=== PATIENT | male | born 1985 | race Caucasian/White ===

== ENCOUNTER 2024-11-15 23:14 | Emergency (ER) | payer BC ==
[~2024-11-15] VITALS: Ht 172.7 cm; Wt 54.8 kg
[2024-11-15 23:19] VITALS: BP 157/99; PULSE 77; RESP 18; O2SAT 100
[2024-11-16] MEDS ORDERED: ondansetron/PF 4mg/2ml inj IV ONE (00:20)
[2024-11-16 00:42] LABS: BILIRUBIN,URINE SMALL (Neg); CLARITY,URINE CLEAR (Clear); COLOR,URINE YELLOW (Yellow); GLUCOSE, URINE NEGATIVE (Neg); KETONES,URINE TRACE mg/dl (Neg); LEUKOCYTE ESTERASE ,URINE TRACE (Neg); NITRITES, URINE NEGATIVE (Neg); OCCULT BLOOD,URINE NEGATIVE (Neg); PROTEIN,URINE NEGATIVE (Neg)
[2024-11-16 00:48] LABS: UA COLLECTION TYPE CLN CATCH MIDSTREAM
[2024-11-16 00:51] LABS: BACTERIA,URINE FEW /HPF (Neg); RBC,URINE 0-2 /HPF (0-2); SQUAMOUS EPITHELIAL CELL,UR FEW /LPF (FEW)
--- NOTE | 2024-11-16 02:02 | Physician Documentation ---
History of Present Illness ~ Chief Complaint: Urinary Symptoms Stated Complaint: CONSTIPATION Time Seen by MD: 02:01 HPI Patient presents today for dysuria and testicular pain. Ongoing over the last few days. He was given 2 doses of 3rd generation cephalosporin Flagyl and 7 day course of doxycycline. Today while urinating he noticed difficulty with urination. He is no new partners denies any fevers. He reports straining with urination onto attempts Medication Reconciliation Allergies: Coded Allergies: No Known Allergies (Unverified , 11/15/24) Review of Systems All Other Systems at this time: Reviewed and Negative Constitutional: Denies: fever Physical Exam Vital Signs: Temperature: 98.3, Source: Temporal, Heart Rate: 77, Respiratory Rate: 18, BP: 157/99, Pulse Oximetry: 100, Weight: 54.800 Oxygen Flow Rate: 0 Physical Exam Well-appearing no distress Abdomen soft nontender Awake alert oriented Progress Results/Orders Results/Orders Orders - HILARY NÚÑEZ MD Cult Urine + [address] (11/16/24 00:50) Completed Orders - HILARY NÚÑEZ MD Ondansetron Inj. (Zofran 4mg/2ml Vial) (11/16/24 00:20) Ua W/Microscopic, Cult If Ind (11/15/24 23:25) Vital Signs 11/15/24 23:19 Temp 98.3 Pulse 77 Resp 18 B/P (MAP) 157/99 Pulse Ox 100 O2 Flow Rate 0 Laboratory Tests Test 11/15/24 23:25 Urine Specimen Description Cln catch midstream Urine Color Yellow Urine Clarity Clear Urine pH 6.0 Urine Specific [place] >=1.030 Urine Protein Negative Urine Glucose (UA) Negative Urine Ketones Trace H Urine Occult Blood Negative Urine Nitrite Negative Urine Bilirubin Small Urine Urobilinogen 1.0 Urine Leukocyte Esterase Trace H Urine RBC 0-2 Urine WBC 5-10 H Urine Squamous Epithelial Cells Few Urine Bacteria Few Urine Culture Indicated Indicated Volume Urine Centrifuged 10 ml Urine Comment Microbiology Date/Time Source Procedure Growth Status 11/16/24 00:50 Urine Clean Catch Midstream Urine Culture - Preliminary Culture received. Resulted Departure Disposition: 01 HOME / SELF CARE / HOMELESS Impression: Primary Impression: Acute urinary tract infection Additional Instructions: Please return to the emergency department for fever . Continue taking the doxycycline that was already prescribed to and start taking cephalexin and Flomax which I have sent to your pharmacy. You may start taking both of these tomorrow morning Referrals: NO PRIMARY CARE PROVIDER (PCP) Prescriptions Cephalexin (Cephalexin) 500 Mg Capsule 1 CAP PO Q6H for 5 Days, #20 CAP Prov: HILARY NÚÑEZ MD 11/16/24 Tamsulosin Hcl* (Flomax*) 0.4 Mg Cap.sr.24h 1 CAP PO DAILY for 10 Days, #10 CAP Prov: HILARY NÚÑEZ MD 11/16/24 Signature Scribe Signature: na Attestation: HILARY Friedman MD November 16, 2024 02:02
[2024-11-16] MEDS ORDERED: CEPH500C81 PO (02:34)
[2024-11-16] MEDS ORDERED: TAMS-55 PO (02:34)
[2024-11-16] MEDS: tamsulosin 0.4mg capsule PO ONE (03:06)
[2024-11-16] MEDS: CefTRIAXone 500MG IM Kit w/LIDOcaine IM ONE (03:08)
[2024-11-16 03:10] VITALS: TEMP 98.3
== END 2024-11-16 03:11 | disposition home or self-care (01) ==
LOC: ER 23:15
DX: N39.0 Urinary tract infection, site not specified (principal)
CPT/HCPCS: 81001; 87081; 87088; 96372; 99283; J0696

== ENCOUNTER 2024-11-16 09:42 | Emergency (ER) | payer BC ==
[~2024-11-16] VITALS: Ht 172.7 cm; Wt 87.2 kg
[~2024-11-16 09:42] MED LIST: CEPH500C81 PO; TAMS-55 PO
--- NOTE | 2024-11-16 10:03 | Physician Documentation ---
History of Present Illness ~ Chief Complaint: Urinary Retention Stated Complaint: UTI/UNABLE TO URINATE Time Seen by MD: 10:16 Primary Medical Doctor: NONE RENETTA [age] year old male returns to the ED with ongoing complaint of urinary retention and painful urination. He was previously placed on Flagyl and doxycycline. He was seen here yesterday given Flomax. No evidence of RBCs in his urine yesterday however he left the ED early this morning and returns after sleeping with increased urinary retention and difficulty urinating states he does not have any penile discharge but and reports only mild dribbling when at tempting to urinate. Day of Onset: November 16, 2024 Medication Reconciliation Allergies: Coded Allergies: No Known Allergies (Unverified , 11/16/24) Scheduled Cephalexin (Cephalexin), 1 CAP PO Q6H Tamsulosin Hcl* (Flomax*), 1 CAP PO DAILY Physical Exam Vital Signs: Temperature: 97.1, Source: Temporal, Heart Rate: 70, Respiratory Rate: 18, BP: 124/85, Pulse Oximetry: 96, Weight: 87.200 Physical Exam General: Alert, no apparent distress. Respiratory: Lungs clear, no respiratory distress. Chest: No accessory muscle use. Cardiovascular: Regular rate and rhythm, no murmurs. Gastrointestinal: Soft, nontender, nondistended. Bowels sounds present. Extremities: Normal range of motion, no deformity. Neurologic: Oriented x4. Psychiatric: Normal mood and affect. Skin: Normal color, warm and dry. No edema, no ecchymosis. Progress Results/Orders Results/Orders Orders - ASHA THOMAS FIRE BEHAVIOR ANALYST Bladder Scan (11/16/24 ) Urinalysis, Cult If Indicated (11/16/24 10:03) * Straight Cath* (11/16/24 10:38) Ct Abdomen Pelvis (11/16/24 10:59) Completed Orders - ASHA THOMAS FIRE BEHAVIOR ANALYST Cbc/Diff (11/16/24 10:03) BMP (11/16/24 10:03) Lipase (11/16/24 10:03) CMP (11/16/24 10:03) Ct Abdomen Pelvis (11/16/24 10:59) Morphine 4mg/Ml Inj. (Morphine Inj.) (11/16/24 12:45) Ondansetron Inj. (Zofran 4mg/2ml Vial) (11/16/24 12:45) Medications Received in ER Medications (Trade) Dose Ordered Sig/Nancy Route PRN Reason Start Time Stop Time Status Last Admin Dose Admin (morphine inj.) 4 mg ONCE ONCE IV 11/16/24 12:45 11/16/24 12:46 DC 11/16/24 12:48 4 MG (Zofran 4mg/2ml vial) 4 mg ONCE ONCE IV 11/16/24 12:45 11/16/24 12:46 DC 11/16/24 12:47 4 MG Vital Signs 11/16/24 11/16/24 11/16/24 11/16/24 09:58 11:23 11:28 12:48 Temp 97.1 98.3 98.3 Pulse 70 59 67 Resp 18 18 18 12 B/P (MAP) 124/85 119/82 (94) 111/72 (85) Pulse Ox 96 99 100 O2 Flow Rate 0 11/16/24 12:48 Resp 12 Laboratory Tests Test 11/16/24 10:16 White Blood Count 6.2 Red Blood Count 5.19 Hemoglobin 15.3 Hematocrit 45.6 Mean Corpuscular Volume 87.9 Mean Corpuscular Hemoglobin 29.5 Mean Corpuscular Hemoglobin Concent 33.6 Red Cell Distribution Width 13.3 Platelet Count 241 Mean Platelet Volume 8.6 Neutrophils (%) (Auto) 65.6 Lymphocytes (%) (Auto) 21.9 Monocytes (%) (Auto) 6.7 Eosinophils (%) (Auto) 5.4 Basophils (%) (Auto) 0.4 Neutrophils # (Auto) 4.1 Lymphocytes # (Auto) 1.4 Monocytes # (Auto) 0.4 Eosinophils # (Auto) 0.3 Basophils # (Auto) 0.0 CBC Comment Sodium Level 146 H Potassium Level 4.0 Chloride Level 110 H Carbon Dioxide Level 27.6 Anion Gap 8 Blood Urea Nitrogen 16 Creatinine 0.95 Estimated GFR/1.73 m2 88 BUN/Creatinine Ratio 16.8 Glucose Level 93 Calcium Level 8.4 L Total Bilirubin 0.4 Aspartate Amino Transf (AST/SGOT) 20 Alanine Aminotransferase (ALT/SGPT) 30 Alkaline Phosphatase 84 Total Protein 7.1 Albumin 3.8 Globulin 3.3 Albumin/Globulin Ratio 1.2 Lipase 39 Chemistry Comments Medical Decision Making Findings Patient does not present acutely ill however he does present with concerns over ongoing penile pain when attempting urinate under scan indicated patient was not retaining urine as nursing staff in the found that he had a proximally 250 mL. Patient presents somewhat early to be concerned about enlarged prostate. I am currently suspecting urethral stricture.. He has already been treated for STI. However he told me that he was unable to bead picker the previously prescribed c ephalexin and Flomax for unknown reasons. Urologist: indicates meatal stenosis Patient had a suspected syncopal event while the urologist was placing the guidewire and dilators. Patient did acknowledge he has a history of vasovagal syncope secondary to blood draws EKG unremarkable Patient recovered quickly and showed no signs of postictal symptoms Patient recovered from event at bedside patient showed no signs of symptoms being postictal. pain medications to assist with the procedure completion Was able to completely empty his bladder at bedside with the dilators in place. Dr. Luna will follow up with the patient next week. Urinary Diff Dx:Considerations: Include: AAA, Aortic dissection, Appendicitis, Appendicitis train, Bowel obstruction, Bladder outlet obstruc., Cholelithiasis, Choleangitis, Cholecystitis, DJD, Epididymitis, Hepatitis, HNP, Impaction, Musculoskeletal pain, Pancreatitis, Postoperative Comp., Prostatitis, Pyelonephritis, Renal failure, Renal infarction, Strain, Urolithiasis, Urinary Obstruction, Urethritis, Urinary retention, UTI, Other Departure Disposition: 01 HOME / SELF CARE / HOMELESS Impression: Primary Impression: Meatal stenosis Discharge Instructions: Acute Urinary Retention, Male, [id number] Referrals: NO PRIMARY CARE PROVIDER (PCP) ADITI LUNA MD Education Educated: Patient Educated regarding: diagnosis Signature Scribe Signature: cd Attestation: The note accurately reflects work and decisions made by me.Asha Thomas - KO 11/16/24 11:36 ASHA THOMAS NP November 16, 2024 10:03
[2024-11-16 10:49] LABS: BASOPHILS % (AUTO) 0.4 % (0-1); EOSINOPHILS # (AUTO) 0.3 X10'3 (0-0.9); EOSINOPHILS % (AUTO) 5.4 % (0-6); HEMATOCRIT 45.6 % (42.0-52.0); HEMOGLOBIN 15.3 g/dl (14.0-17.9); LYMPHOCYTES # (AUTO) 1.4 X10'3 (1.1-4.8); LYMPHOCYTES % (AUTO) 21.9 % (21-51); MEAN CORPUSCULAR HEMOGLOBIN 29.5 PG (27.0-31.0); MEAN CORPUSCULAR HGB CONC 33.6 g/dL (33.0-36.5); MEAN CORPUSCULAR VOLUME 87.9 FL (78-98); MEAN PLATELET VOLUME 8.6 FL (7.4-10.4); MONOCYTES # (AUTO) 0.4 X10'3 (0-0.9); MONOCYTES % (AUTO) 6.7 % (2-12); NEUTROPHILS # (AUTO) 4.1 X10'3 (1.8-7.7); NEUTROPHILS % (AUTO) 65.6 % (42-75); PLATELET COUNT 241 X10'3 (140-440); RED BLOOD COUNT 5.19 X10'6 (4.70-6.10); RED CELL DISTRIBUTION WIDTH 13.3 % (11.5-14.5); WHITE BLOOD COUNT 6.2 X10'3 (4.5-11.0)
[2024-11-16 11:03] LABS: ALANINE AMINOTRANSFERASE 30 U/L (12-78); ALBUMIN 3.8 G/DL (3.4-5.0); ALBUMIN/GLOBULIN RATIO 1.2 (1.1-1.5); ALKALINE PHOSPHATASE 84 IU/L (46-116); ANION GAP 8 (8-16); ASPARTATE AMINO TRANSFERASE 20 U/L (10-37); BILIRUBIN,TOTAL 0.4 MG/DL (0.1-1.0); BLOOD UREA NITROGEN 16 MG/DL (7-18); BUN/CREATININE RATIO 16.8 (10.0-20.0); CALCIUM 8.4 MG/DL (8.5-10.1); CHLORIDE 110 MMOL/L (99-107); CREATININE 0.95 MG/DL (0.60-1.10); GLUCOSE 93 MG/DL (70-104); LIPASE 39 U/L (16-77); SODIUM 146 MMOL/L (135-145); TOTAL CARBON DIOXIDE 27.6 MMOL/L (24-32); TOTAL PROTEIN 7.1 G/DL (6.4-8.2); eCRCL 101 ML/MIN; eGFR 88 ML/MIN
--- NOTE | 2024-11-16 11:18 | RADIOLOGY REPORT ---
CT ABDOMEN AND PELVIS WITHOUT CONTRAST CLINICAL HISTORY: urinary retention and penile pain TECHNIQUE: Multiple contiguous axial images of the abdomen and pelvis without intravenous contrast. T he images were reformatted degenerate coronal and sagittal reconstructions. All CT scans at this medical facility are performed using dose modulation techniques as appropriate t o a performed exam including the following:Automated exposure control was utilized; adjustment of the MA and/or KV according to patient size; and use of iterative reconstruction technique. Radiation Dose Information: CT Dose: CTDI volume is 20 mGy. Dose-length product is 1143 mGy*cm Comparison: None FINDINGS: Evaluation of the abdomen and pelvis is limited without intravenous contrast. The liver, gallbladder, pancreas, kidneys, adrenal glands, and spleen appear within normal limits. There is no gross evidence of abdominal lymphadenopathy. There is no free fluid or free air. The stomach grossly appears unremarkable. The small and large bowel loops demonstrate normal caliber and distribution. A normal appearing appendix is seen in the right lower quadrant abdomen. The abdominal aorta and IVC appear within normal limits. The bladder appears unremarkable for the degree of distention. Pelvic organ appears within normal [place] its. There is no gross evidence of a pelvic mass. There is no free fluid collection. Lung bases are clear. There is no acute osseous abnormality. IMPRESSION: 1. There is no acute process in the abdomen and pelvis. HS:Y
[2024-11-16] MEDS: ondansetron/PF 4mg/2ml inj IV ONE (12:47)
[2024-11-16 12:48] VITALS: TEMP 98.3
[2024-11-16] MEDS: morphine 4 MG/ML inj SYRINge IV ONE (12:48)
[2024-11-16] MEDS: LORazepam 2 mg/ml vial IV ONE (13:14)
[2024-11-16 13:40] VITALS: BP 100/69; PULSE 68; RESP 18; O2SAT 100
--- NOTE | 2024-11-16 15:33 | ELECTROCARDIOGRAPH REPORT ---
[facility] Test Date: 2024-11-16 Test Time: 12:37:16 Pat Name: SHABANA MOTT Department: EMERGENCY ROOM Room: Gender: M Telemarketing Fundraiser: FITZ : 1985 Requested By: ASHA THOMAS Order Number: [id number] Reading MD: Measurements Intervals [place] Rate: 64 P: 15 NV: 119 QRS: 72 QRSD: 108 T: 37 QT: 446 QTc: 461 Interpretive Statements Sinus rhythm Borderline short NV interval Baseline wander in lead(s) V1,V3,V5,V6 Please click the below link to view image of tracing.
--- NOTE | 2024-11-16 19:11 | CONSULTATION ---
DATE OF CONSULTATION: 11/16/2024 DICTATING PHYSICIAN: Eric Moreno MD HISTORY OF PRESENT ILLNESS: The patient presents with a 2-3 week history of increasing difficulty with urination. He was seen in the emergency room yesterday and returned with a feeling of urinary retention and painful urination. He has been given antibiotics in the recent past, which he thought improved things, but it is only worsening again and reports only mild dribbling with attempting to urinate. PAST SURGICAL HISTORY: None. PAST MEDICAL HISTORY: None. ALLERGIES: None. MEDICATIONS: Cephalexin and Flomax. SOCIAL HISTORY: Noncontributory. REVIEW OF SYSTEMS: Ten-point review of systems is negative except for HPI. PHYSICAL EXAMINATION: VITAL SIGNS: Blood pressure 124/85, respirations 18, heart rate 70, temperature 97.1. GENITOURINARY: The patient is noted to have an obvious meatal stenosis, which is presumed inflammatory in this case with a circumcised penis. LABORATORY DATA: White count is 6,000, hematocrit is 45%. BUN and creatinine are 16 and 0.9. Urinalysis is not performed. IMAGING: Shows a normal lower urinary tract with a postvoid residual of about 300 mL. PROCEDURE NOTE: Standard prep and drape of the genitals was performed. A smooth Glidewire was advanced through the meatus and coiled into the bladder. Urethral dilation of meatal stenosis was initiated. I performed dilation with 8-[place] and 10-[place]. At this point, the patient had a reaction, which is characterized somewhere between a seizure and a vagal event. It was witnessed by multiple bystanders. It would seem that pain brought this on. After an appropriate period of observation, the dilation was continued up to 16-[place]. The patient was able to void thereafter with an improved force of stream. He is at risk for recurrent meatal stenosis and will follow up in the office in 1-2 weeks. ASSESSMENT: * Urinary retention secondary to meatal stenosis, status post dilation today. * Witnessed event, which appeared possible seizure versus vagal event from pain. This will be worked up if appropriate by emergency room staff. PLAN: Follow up with me in 1-2 weeks for instructions on urethral self dilation. Eric Moreno MD TID: [id number] RECEIPT: [id number] MYAH
== END 2024-11-16 13:49 | disposition home or self-care (01) ==
LOC: ER 09:42
DX: N35.911 Unspecified urethral stricture, male, meatal (principal); Z79.899 Other long term (current) drug therapy
CPT/HCPCS: 36415; 74176; 80053; 83690; 85025; 93005; 96374; 96375; 99285; J2270; J2405; A4353; C1758